=== PATIENT | female | born 1990 | race Two or more races ===

== ENCOUNTER 2021-03-31 14:57 | Emergency (ER) | payer MEDICAID ==
[2021-03-31 15:04] VITALS: BP 124/87
[2021-03-31] MEDS ORDERED: HYDROcod/ACETAM 5/325 MG TABLET PO STA (15:09)
--- NOTE | 2021-03-31 15:10 | ED Physician Documentation ---
PD HPI MAJOR TRAUMA - Stated complaint Stated Complaint: TAIL BONE PX - Chief complaint Chief Complaint: Trauma Ch/Bk - History obtained from History obtained from: Patient (Otherwise healthy 30-year-old woman with no possibility of was on a steep slope yesterday, she pivoted and fell onto her buttocks and now has severe sacral pain. No other injuries.) Review of Systems Constitutional: reports: Reviewed and negative Eyes: reports: Reviewed and negative PD PAST MEDICAL HISTORY - Present Medications Home Medications: Ambulatory Orders Medication Instructions Recorded Confirmed HYDROcod/ACETAM 5/325 [Spring 5/325] 1 - 2 tab PO Q6H PRN #15 tablet 03/31/21 Venlafaxine ER [Effexor ER] 75 mg PO DAILY #90 cap 03/31/21 - Allergies Allergies/Adverse Reactions: Allergies Allergy/AdvReac Type Severity Reaction Status Date / Time No Known Drug Allergies Allergy Verified 03/31/21 15:01 PD ED PE NORMAL - Vitals Vital signs reviewed: Yes - General General: Alert and oriented X 3, No acute distress - HEENT HEENT: PERRL, EOMI - Back Back: Other (Tender over the mid and lower sacrum, no other pelvic or lumbar spine tenderness.) - Neuro Neuro: Alert and oriented X 3, Normal speech Results - Vitals Vitals: Vital Signs - 24 hr 03/31/21 15:01 Temperature 36.5 C Heart Rate 90 Respiratory 16 Rate Blood Pressure 124/87 H O2 Saturation 96 Oxygen O2 Source Room air PD MEDICAL DECISION MAKING - ED course ED course: 30-year-old woman presents for evaluation of tailbone pain after fall yesterday. X-ray was negative. Went back into the room to summer camp counselor her about the x-ray and expected course of healing, she was having a panic attack with hyperventilation, shaking. States this was brought on by crying baby in the next room. She was administered 2 mg of Versed IM for anxiolysis and this helped a lot. We talked a lot about that and she basically has severe panic attacks almost daily, usually lasting an hour at a time or so. They are debilitating. She is been on medicines in the distant past for them, she does not remember what, and is amenable to starting an SNRI. I am prescribing a short course of short-acting opioid pain medication for this patient. I have reviewed the patients DUCT LAYER and no concerning findings were noted. I have discussed that the opioids are for short term therapy only, and will not be refilled from the ED. Departure - Departure Disposition: 01 Home, Self Care Clinical Impression: Panic disorder Sacral contusion Qualifiers: Encounter type: initial encounter Qualified Code(s): S30.0XXA - Contusion of lower back and pelvis, initial encounter Condition: Good Record reviewed to determine appropriate education?: Yes Instructions: ED Contusion Back Prescriptions: Venlafaxine ER [Effexor ER] 75 mg PO DAILY #90 cap HYDROcod/ACETAM 5/325 [Spring 5/325] 1 - 2 tab PO Q6H PRN #15 tablet PRN Reason: Pain Comments: Important to establish primary care, stop the front office clerk on the way out and inquire if they can help you switch from [place] to another form of insurance that is taken locally. Return for new or worsening symptoms. Prescription sent electronically to [facility] in [place]. I am prescribing a short course of narcotic pain medication for you. These are potentially dangerous and addictive medications that should be used carefully. These medications may constipate you. Take an agmh-ygo-gyeejyd stool softener (docusate) twice daily with plenty of water while taking these medications. If you go 24 hours without a bowel movement, take ayyp-ojg-bkvuhpd miralax, per package instructions. Do not drink or drive while taking these medications. If you received narcotic or sedating medications while in the emergency department, do not drive for 24 hours. Store this medication in a safe, secure place and out of reach of children. It is a violation of federal law to give or sell this medication to another rson or to use in a manner other than prescribed. The ED will not refill narcotic prescriptions, including prescriptions lost or stolen. To dispose of unwanted medications: 1. [facility] at [address] in [place] has a medication drop box. They accept prescription medications (in pill form) Wednesday through Wednesday 9:00 a.m. to 5:00 p.m. 2. The [facility] accepts prescription medications (in pill form only) for disposal year round. Call for more information. 3. Contact the [facility] for the next [facility] sponsored prescription drug collection event. , [phone], or [phone]; Note that many narcotic pain relievers also contain Tylenol/acetaminophen. Please ensure that your total dose of acetaminophen from all sources does not exceed 3 g (3000 mg) per day. Discharge Date/Time: 03/31/21 16:52
--- NOTE | 2021-03-31 15:36 | XRAY Report ---
PROCEDURE: Sacrum/Coccyx INDICATIONS: sacral inj TECHNIQUE: 3 views of the sacrum and coccyx acquired. COMPARISON: None FINDINGS: Bones: No fractures or dislocations. No suspicious bony lesions. SI joints are patent. Soft tissues: Visualized bowel gas pattern is normal. No suspicious soft tissue densities. IMPRESSION: No visualized acute fracture or dislocation. However, occult injury cannot be excluded. Recommend estelle rt interval imaging follow-up in 7-10 days as clinically indicated for additional evaluation. Reviewed by: Ita Sparrow MD on 03/31/2021 3:35 PM PDT Approved by: Ita Sparrow MD on 03/31/2021 3:35 PM PDT Station ID: [id number]
[2021-03-31] MEDS ORDERED: MIDAZOLAM 2 MG/2 ML VIAL IM STA (16:04)
== END 2021-03-31 16:52 | disposition home or self-care (01) ==
LOC: ED 14:57
DX: S30.0XXA Contusion of lower back and pelvis, initial encounter (principal); W01.0XXA Fall on same level from slipping, tripping and stumbling without subsequent striking against object, initial encounter; F41.0 Panic disorder [episodic paroxysmal anxiety]
CPT/HCPCS: 72220; 96372; 99283; A9270

== ENCOUNTER 2021-11-05 11:32 | Emergency (ER) | payer BC, MEDICAID ==
--- OUTSIDE RECORDS SUMMARY | 2021-11-05 11:50 | EXTERNAL MEDICAL SUMMARY RPT | Continuity of Care Document ---
:1990 Author Organization [facility] Address [address] [place] [address] Phone Care Team Providers Name Role Phone ENP Unavailable Unavailable Allergies No information. Encounters No information. Medications No information. Problems date description facility 20211022 Presentation of All 20211022 Encounter for supervision of normal preg dara, unspecified, All unspecified trimester Results test status date ordered by attending specimen estephanie e human_chorionic_gonado unknown 20211022 unknown unknown unknown tropin_urine_qualitativ e_urine_pregnancy_test_ Choriogonadotropin_pre unknown 20211022 unknown unknown unknown gnancy_test_Presence_in _Urine Urine_HCG_Exp_Date_CLI unknown 20211022 unknown unknown unknown A_Waived_ Urine_HCG_Lot_Number_C unknown 20211022 unknown unknown unknown LIA_Waived_ facility observation status value reference units lab abnor mal line range code notes All human_chorio unknown Positive unknown _2578 unkno wn unknown nic_gonadotro pin_urine_qua litative_urin e_pregnancy_t est_ All Choriogonado unknown Positive unknown _2106 unkno wn unknown tropin_pregna -3 ncy_test_Pres ence_in_Urine All Urine_HCG_Ex unknown 09/29/22 unknown _1149 unknow n unknown p_Date_CLIA_W 41 aived_ All Urine_HCG_Lo unknown [id number] unknown _1149 unknow n unknown t_Number_CLIA 40 _Waived_ Vital Signs date measurement value source 20211022 weight_standard 198 lb 20211022 weight_metric 89.81 kg 20211022 respiration_rate 18 /min 20211022 height_standard 65 in 20211022 height_metric 165.1 cm 20211022 heart_rate 90 /min 20211022 BP_systolic 127 mm[Hg] 20211022 BP_diastolic 82 mm[Hg] 20211022 BMI 33.07 kg/m2
--- NOTE | 2021-11-05 11:56 | ED Physician Documentation ---
History of Present Illness - Stated complaint Stated Complaint: CRAMPING, BLEEDING +PREG - Chief complaint Chief Complaint: Abd Pain - Additonal information Additional information: 31-year-old female presents emergency department for evaluation of lower pelvic pain, cramping and intermittent spotting. Patient's LMP 09/18/2021. G2, P1. Previous delivered via post-term. Patient reports that intermittently for the last few weeks she has had light brown and occasional spotting but notesthat it has increased over the last few days. She has not yet been able to establish with an OB as they are not accepting new patients. Patient denies any fevers focal abdominal pain uncontrolled vomiting she does endorse some nausea. No dysuria urgency or frequency. Past surgical history negative with the exception of her previous Patient is not vaccinated for COVID-19 though she denies any history of COVID-19 infection Review of Systems Constitutional: denies: Fever, Chills Nose: reports: Reviewed and negative Cardiac: reports: Reviewed and negative Respiratory: reports: Reviewed and negative GI: reports: Nausea. denies: Vomiting, Constipation : reports: LMP (09/18/2021), Vaginal bleeding, Now EGA. denies: Dysuria, Frequency, Hesitancy Skin: reports: Reviewed and negative Musculoskeletal: reports: Reviewed and negative PD PAST MEDICAL HISTORY - Allergies Allergies/Adverse Reactions: Allergies Allergy/AdvReac Type Severity Reaction Status Date / Time No Known Drug Allergies Allergy Verified 11/05/21 11:39 PD ED PE NORMAL - General General: Alert and oriented X 3, No acute distress, Well developed/nourished - HEENT HEENT: Atraumatic, Moist mucous membranes - Neck Neck: Supple, no meningeal sign, No adenopathy - Cardiac Cardiac: RRR, No murmur - Respiratory Respiratory: No respiratory distress - Abdomen Abdomen: Normal bowel sounds, Soft, Non tender (focal mid lower pelvic ttp; no guarding/rebound) - Derm Derm: Normal color, Warm and dry - Extremities Extremities: No deformity, No tenderness to palpate, Normal ROM s pain - Neuro Neuro: Alert and oriented X 3, hardware technician 2-12 intact Eye Opening: Spontaneous Motor: Obeys Commands Verbal: Oriented GCS Score: 15 - Psych Psych: Normal mood Results - Vitals Vitals: Vital Signs - 24 hr 11/05/21 11:33 Temperature 36.7 C Heart Rate 80 Respiratory 18 Rate Blood Pressure 137/71 H O2 Saturation 97 Oxygen O2 Source Room air - Labs Labs: Laboratory Tests 11/05/21 11/05/21 11/05/21 11:58 11:58 11:58 WBC 7.0 RBC 4.75 Hgb 12.6 Hct 38.8 MCV 81.7 MCH 26.5 L MCHC 32.5 RDW 16.1 H Plt Count 203 MPV 11.2 H Neut # (Auto) 4.8 Lymph # (Auto) 1.6 Hernando # (Auto) 0.5 Eos # (Auto) 0.1 Baso # (Auto) 0.0 Absolute Nucleated RBC 0.00 Nucleated RBC % 0.0 Sodium 134 L Potassium 3.6 Chloride 102 Carbon Dioxide 22 Anion Gap 10.0 BUN 7 Creatinine 0.7 Estimated GFR (MDRD) 99 Glucose 84 Calcium 9.2 Total Bilirubin 0.4 AST 17 ALT 14 Alkaline Phosphatase 83 Total Protein 8.0 Albumin 4.5 Globulin 3.5 Albumin/Globulin Ratio 1.3 Lipase 39 HCG, Quant Urine Color Urine Clarity Urine pH Ur Specific [place] Urine Protein Urine Glucose (UA) Urine Ketones Urine Occult Blood Urine Nitrite Urine Bilirubin Urine Urobilinogen Ur Leukocyte Esterase Ur Microscopic Review Urine Culture Comments Blood Type O POSITIVE 11/05/21 11/05/21 11:58 12:15 WBC RBC Hgb Hct MCV MCH MCHC RDW Plt Count MPV Neut # (Auto) Lymph # (Auto) Hernando # (Auto) Eos # (Auto) Baso # (Auto) Absolute Nucleated RBC Nucleated RBC % Sodium Potassium Chloride Carbon Dioxide Anion Gap BUN Creatinine Estimated GFR (MDRD) Glucose Calcium Total Bilirubin AST ALT Alkaline Phosphatase Total Protein Albumin Globulin Albumin/Globulin Ratio Lipase HCG, Quant 86074.00 Urine Color LT. YELLOW Urine Clarity CLEAR Urine pH 6.5 Ur Specific [place] 1.010 Urine Protein NEGATIVE Urine Glucose (UA) NEGATIVE Urine Ketones NEGATIVE Urine Occult Blood NEGATIVE Urine Nitrite NEGATIVE Urine Bilirubin NEGATIVE Urine Urobilinogen 0.2 (NORMAL) Ur Leukocyte Esterase NEGATIVE Ur Microscopic Review NOT INDICATED Urine Culture Comments NOT INDICATED Blood Type - Rads (name of study) pelvic OB US Radiology: Final report received (6-week 3-day live IUP. Small associated subchorionic hemorrhage. Small right corpus luteal cyst) PD MEDICAL DECISION MAKING - ED course Complexity details: reviewed results, re-evaluated patient, d/w patient ED course: 31-year-old female presents emergency department for evaluation of lower pelvic pain and cramping. Ports that she has had vaginal spotting off and on for about 2 to 3 weeks. She has not yet been able to establish with an OB. She intermittently has spotting though sometimes it is bright red. G2, P1. Screening labs today are unremarkable. She has a very healthy quant. Urine shows no signs of infection. She is Rh+. OB ultrasound does show a 6-week 3- day live IUP. There is an associated subchorionic hemorrhage. I did discuss this with the patient and her at the bedside. I recommended avoidance of sexual activity until cleared by OB but routine daily activities are acceptable. Patient is to return to the ER for severe vaginal bleeding or fainting episodes. Departure - Departure Disposition: 01 Home, Self Care Clinical Impression: Threatened miscarriage in early Subchorionic hemorrhage in first trimester Qualifiers: Fetus number: single or unspecified fetus Qualified Code(s): O41.8X10 - Other specified disorders of amniotic fluid and membranes, first trimester, not applicable or unspecified; O46.8X1 - Other antepartum hemorrhage, first trimester Condition: Stable Record reviewed to determine appropriate education?: Yes Instructions: ED Miscarriage Poss Comments: Ava I wish you well during this journey in your . You are seen today for lower pelvic cramping and vaginal bleeding/spotting. The ultrasound today shows that you have an approximately 6-week 3-day live IUP. There is a small subchorionic hemorrhage associated with this. A subchorionic hemorrhage can often go on to have a normal though it does put you at risk for miscarriage. I do recommend that you continue to your best to obtain close follow-up with an OB. Your hormone level today is 44,000. If you are not able to establish with an OB I do recommend that you return to the ER on Wednesday morning to have your hormone levels rechecked. A rising hormone level is a favorable sign that the will continue. If you develop severe vaginal bleeding to find a saturating a menstrual pad every hour for 6 or more hours, have a sudden severe chest pain or shortness of air or any fainting episodes then please return immediately to the ER for a second evaluation.
[2021-11-05 12:12] LABS: BASOPHILS % (AUTO) 0.3 %; EOSINOPHILS # (AUTO) 0.1 10^3/uL (0.0-0.7); EOSINOPHILS % (AUTO) 1.3 %; HCT - HEMATOCRIT 38.8 % (37.0-47.0); HGB - HEMOGLOBIN 12.6 g/dL (12.0-16.0); LYMPHOCYTES # (AUTO) 1.6 10^3/uL (1.5-3.5); LYMPHOCYTES % (AUTO) 23.2 %; MEAN CORPUSCULAR HEMOGLOBIN 26.5 pg (27.0-31.0); MEAN CORPUSCULAR HGB CONC 32.5 g/dL (32.0-36.0); MEAN CORPUSCULAR VOLUME 81.7 fL (81.0-99.0); MEAN PLATELET VOLUME 11.2 fL (7.9-10.8); MONOCYTES # (AUTO) 0.5 10^3/uL (0.0-1.0); NEUTROPHILS # (AUTO) 4.8 10^3/uL (1.5-6.6); NEUTROPHILS % (AUTO) 67.9 %; PLT - PLATELET COUNT 203 10^3/uL (130-450); RED BLOOD COUNT 4.75 10^6/uL (4.20-5.40); RED CELL DISTRIBUTION WIDTH 16.1 % (12.0-15.0)
[2021-11-05 12:26] LABS: ALBUMIN 4.5 g/dL (3.2-5.5); ALBUMIN/GLOBULIN RATIO 1.3 (1.0-2.2); BILIRUBIN,TOTAL 0.4 mg/dL (0.2-1.0); CALCIUM 9.2 mg/dL (8.5-10.3); CREATININE 0.7 mg/dL (0.4-1.0); POTASSIUM 3.6 mmol/L (3.5-5.0)
[2021-11-05 12:34] LABS: BILIRUBIN,URINE NEGATIVE (NEGATIVE); GLUCOSE, URINE (UA) NEGATIVE (NEGATIVE); KETONES,URINE (UA) NEGATIVE (NEGATIVE); LEUKOCYTE ESTERASE, URINE NEGATIVE (NEGATIVE); NITRITE,URINE NEGATIVE (NEGATIVE); OCCULT BLOOD,URINE NEGATIVE (NEGATIVE); PH,URINE 6.5 PH (5.0-7.5); PROTEIN,URINE NEGATIVE (NEGATIVE); UROBILINOGEN,URINE 0.2 (NORMAL) E.U./dL (NORMAL)
[2021-11-05 12:35] LABS: CLARITY,URINE CLEAR (CLEAR)
--- NOTE | 2021-11-05 14:59 | Ultrasound Report ---
PROCEDURE: OB First Trimester w/TV INDICATIONS: Spotting, lower pelvic pain OUTSIDE/PRIOR DATING DATA: Last menstrual period (LMP): September 18, 2021. LMP-based estimated date of delivery (MARILYN): June 25, 2022. First dating scan (date): November 05, 2021. Estimated date of delivery (MARILYN) from first dating scan: June 28, 2022.. TECHNIQUE: Real-time scanning was performed of the fetus and maternal pelvic organs, with image documentation. Endovaginal scanning was also performed to better visualize the fetus and maternal ovaries. COMPARISON: None. FINDINGS: A 19 x 10 x 18 mm hypoechoic lesion is seen adjacent to the gestational sac, compatible wi th a subchorionic hemorrhage. Embryo: Mean crown-rump length measures 6.3 mm, compatible with a 6 week, 3 day gestation. Heart rate: 127 beats per minute Measurement variability in dating: +/- 4 weeks by LMP, +/- 7 days by mean sac diameter (use before 6 weeks gestation if crown-rump length not able to be measured), +/- 5 days by crown-rump length (6-12 weeks gestation). Maternal organs: Ovaries demonstrate a right corpus luteum. IMPRESSION: Early live single intrauterine gestation as detailed above. Reviewed by: Mc Foster MD on 11/05/2021 2:57 PM PDT Approved by: Mc Foster MD on 11/05/2021 2:57 PM PDT Station ID: [id number]
[2021-11-05 15:08] VITALS: BP 128/70
== END 2021-11-05 15:07 | disposition home or self-care (01) ==
LOC: ED 11:32
DX: O20.0 Threatened abortion (principal); Z3A.01 Less than 8 weeks gestation of pregnancy; O20.8 Other hemorrhage in early pregnancy
CPT/HCPCS: 36415; 80053; 81001; 81003; 83690; 84702; 85025; 86900; 86901; 87086; 99282; 99283

== ENCOUNTER 2021-11-08 12:29 | Emergency (ER) | payer BC ==
[2021-11-08 12:36] VITALS: BP 112/64
--- NOTE | 2021-11-08 12:56 | ED Physician Documentation ---
History of Present Illness - Stated complaint Stated Complaint: LAB RE-CHECK - Chief complaint Chief Complaint: General - Additonal information Additional information: 31-year-old female presents emergency department for a hCG recheck. Seen few days ago for similar with lower pelvic pain and spotting in first trimester . Found to have a subchorionic hemorrhage though an otherwise viable IUP. hCG was just over 44,000. Has not yet been able to establish with OB. Reports that she has had decreased cramping and very light spotting since being seen in the ER. Feels markedly improved Review of Systems Constitutional: denies: Fever, Chills Throat: reports: Reviewed and negative Cardiac: reports: Reviewed and negative Respiratory: reports: Reviewed and negative GI: reports: Reviewed and negative : reports: Reviewed and negative Skin: reports: Reviewed and negative PD PAST MEDICAL HISTORY - Allergies Allergies/Adverse Reactions: Allergies Allergy/AdvReac Type Severity Reaction Status Date / Time No Known Drug Allergies Allergy Verified 11/08/21 12:34 PD ED PE NORMAL - General General: Alert and oriented X 3, No acute distress - HEENT HEENT: Atraumatic, Moist mucous membranes - Neck Neck: Supple, no meningeal sign - Cardiac Cardiac: RRR, No murmur - Respiratory Respiratory: No respiratory distress - Abdomen Abdomen: Normal bowel sounds, Soft, Non tender Results - Vitals Vitals: Vital Signs - 24 hr 11/08/21 12:34 Temperature 36.5 C Heart Rate 74 Respiratory 16 Rate Blood Pressure 112/64 O2 Saturation 100 Oxygen O2 Source Room air - Labs Labs: Laboratory Tests 11/08/21 12:57 HCG, Quant 01087.00 PD MEDICAL DECISION MAKING - ED course Complexity details: reviewed results, re-evaluated patient, considered differential, d/w patient, d/w family ED course: 31-year-old female returns emergency department to have her hCG rechecked after being seen in the ER 3 days ago she was found to have a viable IUP with associated subchorionic hemorrhage. hCG has risen appropriately to 72,000 today. Patient reports less cramping and scant bleeding. Emergent return precautions were discussed for severe vaginal bleeding at this point she will continue to follow forward with [facility] in [place]. Departure - Departure Disposition: 01 Home, Self Care Clinical Impression: Vaginal bleeding in patient after first trimester Comments: Ava your blood type is O+. Your hCG levels have risen to 72,000. Please continue to follow-up with your OB in [place]. Return immediately to the ER if you develop severe vaginal bleeding which is saturating a pad or tampon every hour for 6 or more hours, have severe lower abdominal pain uncontrolled vomiting fevers higher than 103
--- OUTSIDE RECORDS SUMMARY | 2021-11-08 13:03 | EXTERNAL MEDICAL SUMMARY RPT | Continuity of Care Document ---
:1990 Author Organization [facility] Address [address] [place] [address] Phone Care Team Providers Name Role Phone GERARDOP, Lexis Pritchard [employer] STORE MANAGER Unavailable Unavailab le Allergies No information. Encounters No information. Medications [...] unknown p_Date_CLIA_W 41 aived_ All Urine_HCG_Lo unknown [id number] unknown _1149 unknow n unknown t_Number_CLIA 40 _Waived_ Vital Signs date measurement value source 20211022 weight_standard 198 lb 20211022 weight_metric 89.81 kg 20211022 respiration_rate 18 /min 20211022 height_standard 65 in 20211022 height_metric 165.1 cm 20211022 heart_rate 90 /min 20211022 BP_systolic 127 mm[Hg] 20211022 BP_diastolic 82 mm[Hg] 20211022 BMI 33.07 kg/m2
== END 2021-11-08 14:01 | disposition home or self-care (01) ==
LOC: ED 12:29
DX: O20.9 Hemorrhage in early pregnancy, unspecified (principal); Z3A.00 Weeks of gestation of pregnancy not specified
CPT/HCPCS: 36415; 84702; 99282; 99283